=== PATIENT | male | born 1985 | race Caucasian/White ===

== ENCOUNTER 2024-01-18 04:34 | Emergency (ER) | payer SELFPAY ==
[2024-01-18] MEDS: Morphine 2 MG/ML SYRINGE IM ONE (05:00)
[2024-01-18] MEDS: Morphine 4 MG/ML VIAL IVPUSH ONE (05:10)
[2024-01-18] MEDS: Ketorolac 30 MG/ML SDV IVPUSH SCH (06:00)
[2024-01-18] MEDS: HYDROmorphone 2 MG/ML Syringe IVPUSH SCH (06:05)
[2024-01-18] MEDS: Morphine 4 MG/ML VIAL ONE (06:22)
[2024-01-18] MEDS: HYDROmorphone 2 MG/ML Syringe ONE (06:22)
[2024-01-18] MEDS: Ketorolac 30 MG/ML SDV ONE (06:23)
[2024-01-18] MEDS: HYDROmorphone 2 MG/ML Syringe IVPUSH ONE (06:47)
[2024-01-18] MEDS: fentaNYL 100 MCG/2 ML SDV IVPUSH ONE (07:59)
[2024-01-18] MEDS: fentaNYL 100 MCG/2 ML SDV ONE (08:22)
== END 2024-01-18 09:20 ==
LOC: LB.ED 04:34
DX: S12.691A Other nondisplaced fracture of seventh cervical vertebra, initial encounter for closed fracture (principal); S22.42XA Multiple fractures of ribs, left side, initial encounter for closed fracture; W17.89XA Other fall from one level to another, initial encounter
CPT/HCPCS: 70450; 71250; 72125; 72128; 72131; 73060-LT; 73060-RT; 73090-50; 73110-LT; 96372; 96374; 96375; 96376; 99285; 99285-25; A0425; A0428; J1171; J1885; J2270; J3010